=== PATIENT | female | born 1990 | race Hispanic/Latino ===

== ENCOUNTER 2025-06-05 08:58 | Inpatient (IN) | payer BC ==
[2025-06-05 09:13] VITALS: BMI 26.4
[2025-06-05 10:27] LABS: Hematocrit 38.6 % (34.9-44.5); Hemoglobin 12.8 g/dL (12.0-15.5); Mean Corpuscular Hemoglobin 30.2 pg (27.0-33.0); Mean Corpuscular Volume 91.0 fL (81.6-98.3); Platelet Count 355 10x3/uL (150-450); Red Blood Cell (RBC) Count 4.24 10x6/uL (3.90-5.03); White Blood Cell (WBC) Count 11.30 10x3/uL (3.5-10.5)
[2025-06-05] MEDS ORDERED: Bicitra 30 ML UDCUP PO PRN (10:42)
[2025-06-05] MEDS ORDERED: Ondansetron PF 4 MG/2 ML Vial IVP PRN ×4 (10:42→15:48)
[2025-06-05] MEDS ORDERED: hydrALAZINE 20 MG/ML VIAL SLOW IVP PRN ×2 (10:42→15:48)
[2025-06-05] MEDS ORDERED: Methylergonovine 0.2 MG/ML VIAL IM PRN ×2 (10:42→15:48)
[2025-06-05] MEDS ORDERED: Diphenoxylate HCl/Atropine Tablet PO PRN (10:42)
[2025-06-05] MEDS ORDERED: Carboprost 250 MCG/ML AMP IM PRN (10:42)
[2025-06-05] MEDS ORDERED: Tranexamic Acid 1,000 MG/10 ML VIAL IVP PRN (10:42)
[2025-06-05] MEDS ORDERED: Famotidine/PF 20 mg/2ml Vial SLOW IVP PRN (10:42)
[2025-06-05] MEDS ORDERED: Oxytocin 30 units/NS 500 ML 500 ML IV SCH (10:45)
[2025-06-05 10:57] LABS: Hep B Surf Ag - L&D Non-Reactive S/CO (NonReactive)
[2025-06-05 10:58] LABS: Syphilis Antibody Index 0.05 S/CO (<1.00 Non-Reactive)
[2025-06-05] MEDS ORDERED: HYDROmorphone 0.5 MG/0.5 ML SYRINGE SLOW IVP PRN (12:34)
[2025-06-05] MEDS ORDERED: diphenhydrAMINE 50 MG/ML VIAL IVP PRN (12:34)
[2025-06-05] MEDS ORDERED: Meperidine HCl/PF 25 MG (1 mL) VIAL SLOW IVP PRN (12:34)
[2025-06-05] MEDS ORDERED: Communication Order-Pharmacy FS SCH (12:45)
[2025-06-05] MEDS ORDERED: Ketorolac Tromethamine 30 MG (1 mL) VIAL IVP SCH (12:45)
[2025-06-05] MEDS ORDERED: Simethicone Chewable 80 MG TAB PO PRN (15:48)
[2025-06-05] MEDS ORDERED: Lanolin Ointment 7 GM TUBE TOP PRN (15:48)
[2025-06-05] MEDS ORDERED: diphenhydrAMINE 25 MG CAP PO PRN (15:48)
[2025-06-05] MEDS: Ondansetron PF 4 MG/2 ML Vial ONE ×2 (15:55→15:56)
[2025-06-05] MEDS: Phenylephrine 40 MG/NS 250 ML 250 ML ONE (15:55)
[2025-06-05] MEDS: Dexamethasone 10 MG/ML VIAL ONE (15:55)
[2025-06-05] MEDS: Oxytocin 10 UNITS/ML VIAL ONE ×2 (15:56→15:57)
[2025-06-05] MEDS: Famotidine/PF 20 mg/2ml Vial ONE (15:56)
[2025-06-05] MEDS: Tranexamic Acid 1,000 MG/10 ML VIAL ONE (15:56)
[2025-06-05] MEDS: Ketorolac Tromethamine 30 MG (1 mL) VIAL ONE (15:57)
[2025-06-05] MEDS: Ferrous Sulfate 325 MG TAB PO SCH (19:48)
[2025-06-06 06:14] LABS: Hematocrit 30.8 % (34.9-44.5); Hemoglobin 10.1 g/dL (12.0-15.5); Mean Corpuscular Hemoglobin 29.9 pg (27.0-33.0); Mean Corpuscular Volume 91.1 fL (81.6-98.3); Platelet Count 317 10x3/uL (150-450); Red Blood Cell (RBC) Count 3.38 10x6/uL (3.90-5.03); White Blood Cell (WBC) Count 15.57 10x3/uL (3.5-10.5)
[2025-06-06] MEDS: HYDROcodone/Acetaminophen 5/325 mg Tablet PO PRN (08:14)
[2025-06-06] MEDS: Ketorolac Tromethamine 30 MG (1 mL) VIAL IVP PRN (08:15)
[2025-06-06] MEDS: Oxytocin 30 units/NS 500 ML 500 ML ONE (09:31)
[2025-06-06] MEDS: Boostrix 0.5 ML (Tdap) VIAL (>/=7 yrs of age) IM ONE (09:31)
[2025-06-06] MEDS: Ibuprofen 800 MG TAB PO SCH (21:13)
[2025-06-07] MEDS: HYDROcodone/Acetaminophen 5/325 mg Tablet PO PRN (01:57)
[2025-06-07 07:37] VITALS: BP 93/53; TEMP 98.3
== END 2025-06-07 14:00 | disposition home or self-care (01) | DRG 785 ==
LOC: CSHLD/OP 08:58 → CSHLD 10:22 → CSHPED 17:00
PROVIDERS: ADMIT Family Medicine; ATTEND Family Medicine
PROC: 10D00Z1 Extraction of Products of Conception, Low, Open Approach (ICD-10-PCS; principal; 2025-06-05)
PROC: 0UB70ZZ Excision of Bilateral Fallopian Tubes, Open Approach (ICD-10-PCS; 2025-06-05)
PROC: 10D00Z1 Extraction of Products of Conception, Low, Open Approach (ICD-10-PCS; 2025-06-05)
DX: O34.211 Maternal care for low transverse scar from previous cesarean delivery (principal); Z3A.39 39 weeks gestation of pregnancy; Z37.0 Single live birth
CPT/HCPCS: 36415; 51702; 85027; 86780; 86850; 86900; 86901; 87340; 88302; 88307; 99285; J0169; J1100; J1308; J1885; J2274; J2405; J2590; J3010